=== PATIENT | female | born 1955 | race Caucasian/White ===

== ENCOUNTER 2018-04-10 18:49 | Emergency (ER) | payer OTHER ==
--- NOTE | 2018-04-10 19:34 | RAD ---
TWO VIEWS RIGHT FOREARM: 04/10/18 COMPARISON: None. HISTORY: Trauma, pain. FINDINGS: There are transverse fractures of the distal right radius and ulnar styloid with prominent dorsal and proximal displacement and dorsal angulation. Post reduction imaging advised. IMPRESSION: Fractures of the distal right radius and ulna as above. POS: [facility]
--- NOTE | 2018-04-10 20:10 | RAD ---
TWO VIEWS OF THE RIGHT WRIST: 04/10/18 COMPARISON: None. HISTORY: Deformity, fell out of bed. FINDINGS: There are markedly displaced transverse fractures involving the distal right radius and the ulnar sty loid. Lateral examination is limited secondary to rotation. There is prominent dorsal and proximal di splacement of the distal radial fracture. Post reduction imaging advised. IMPRESSION: Displaced distal right radial fracture with a displaced fracture of the ulnar styloid. Post reduction imaging advised. POS: [facility]
[2018-04-10] MEDS ORDERED: Lidocaine 1% (PF) 30 ML VIAL ONE (21:09)
[2018-04-10] MEDS ORDERED: Ondansetron ODT 8 MG TAB ONE (21:17)
--- NOTE | 2018-04-10 22:09 | RAD ---
TWO VIEWS OF THE RIGHT WRIST: 04/10/18 at 8:49 p.m. COMPARISON: 04/10/18 at 7:02 p.m. HISTORY: Fall, trauma, pain. FINDINGS: There is an obliquely oriented fracture at the base of the ulnar styloid. There is an obliquely orien shon fracture involving the distal right radius. The lateral examination demonstrate approximately 6-7 mm of residual distal displacement of the radial fracture fragment markedly improved. There is mild residual dorsal angulation of the distal radial fracture fragment. IMPRESSION: Fracture deformities of the distal right radius and ulna as detailed above. POS: [facility]
--- NOTE | 2018-04-11 03:31 | CON ---
DATE OF CONSULTATION: 04/10/2018 CHIEF COMPLAINT: Right wrist pain. HISTORY OF PRESENT ILLNESS: Ms. Bravo is a 62-year-old female, who fell tonight. She slipped and l ost her balance. She landed on her right outstretched arm. She had deformity of the wrist and pain. She was seen in the emergency department where x-rays were obtained. She was found to have a displ aced distal radius fracture. Orthopedics was consulted for this injury. She has been given pain med ication. No other injury. She is right hand dominant. No previous fracture. PAST MEDICAL HISTORY: She denies active medical problems. PAST SURGICAL HISTORY: Negative. ALLERGIES: No known drug allergies. FAMILY MEDICAL HISTORY: Noncontributory. REVIEW OF SYSTEMS: Positive for right wrist pain. IMAGES: X-rays demonstrate a completely displaced and angulated distal radius fracture with dorsal c omminution. PHYSICAL EXAMINATION: GENERAL: She is alert, sitting upright, in no apparent distress. HEENT: Normocephalic, atraumatic. RESPIRATORY: Breathing comfortably. ABDOMEN: Soft, nontender, nondistended. MUSCULOSKELETAL: The patient's right upper extremity has dorsal displacement at the distal radius wi th swelling. She has comminution. She is able to flex and extend the fingers. Two second capillary refill. Sensation intact distally. IMPRESSION: Comminuted and displaced distal radius fracture. PLAN: At this point, I will perform a hematoma block and reduce the patient's distal radius. We odilon l splint her arm. She will then be able to go home. I will arrange surgery as an outpatient for her for open reduction and internal fixation to restore anatomic alignment and healing of the distal rad ius. I have reviewed our plan and she is agreeable. Questions have been answered and risks have bee n reviewed. DESCRIPTION OF PROCEDURE: A 21-gauge needle was used to inject 10 mL of lidocaine into the distal ra dius fracture site. She was given morphine as well. At this point, we pulled traction and manipulat ed the fracture back into its anatomic position using a flexion maneuver. This was held in position while we placed a splint on the arm. Padding and a splint was placed as well as Eze wraps. She tole rated this well. No complication.
== END 2018-04-10 22:10 | disposition home or self-care (01) ==
LOC: ERS 18:49
DX: S52.501A Unspecified fracture of the lower end of right radius, initial encounter for closed fracture (principal); S52.611A Displaced fracture of right ulna styloid process, initial encounter for closed fracture; V89.9XXA Person injured in unspecified vehicle accident, initial encounter
CPT/HCPCS: 25605; J2001; J2270

== ENCOUNTER 2018-04-12 11:05 | Day surgery (SDC) | payer OTHER ==
[2018-04-11 11:57] VITALS: BMI 22.3
[2018-04-12] MEDS ORDERED: CEFAZOLIN/Water 2 GM/20 ML SYRINGE ONE (11:23)
[2018-04-12] MEDS ORDERED: Midazolam HCl 2 mg/2 ml Vial ONE (12:44)
[2018-04-12] MEDS ORDERED: Fentanyl 100 MCG/2 ML VIAL ONE (12:44)
[2018-04-12] MEDS ORDERED: Ropivacaine 0.5% HCl/PF (150 MG/30 ML VIAL) ONE (13:46)
[2018-04-12] MEDS ORDERED: Ketorolac Tromethamine 30 MG/ML VIAL ONE (14:24)
[2018-04-12] MEDS ORDERED: PHENYLEPHRINE-NS 100 MCG/ML 10 ML SYRINGE ONE (14:24)
[2018-04-12] MEDS ORDERED: PROPOFOL 200 MG/20 ML VIAL ONE (14:24)
[2018-04-12] MEDS ORDERED: Ondansetron HCl/PF 4 MG/2 ML Vial ONE (14:24)
[2018-04-12] MEDS ORDERED: Lidocaine 1% PF 5 ML VIAL ONE (14:24)
--- NOTE | 2018-04-12 17:11 | RAD ---
TWO VIEWS RIGHT WRIST: History: Right wrist trauma. Open reduction internal fixation. FINDINGS: AP and lateral views obtained. Intraoperative radiographic. Images demonstrate placement of plates and screws across the distal right radial fracture. No evidenc e of angulation seen. IMPRESSION: Open reduction internal fixation distal right radial fracture. POS: [facility]
--- NOTE | 2018-04-12 20:28 | OP ---
DATE OPERATION: 04/12/2018 OPERATION: Open reduction and internal fixation of right distal radius fracture. PREOPERATIVE DIAGNOSIS: Right displaced distal radius fracture. POSTOPERATIVE DIAGNOSIS: Right displaced distal radius fracture. COMPLICATIONS: None. ESTIMATED BLOOD LOSS: Minimal. SURGEON: Cain Sharpe M.D. AUTOMATION LEAD: Laila Rush PA-C. IMPLANTS: Synthes volar distal radius locking plate. INDICATIONS: Ms. Bravo is a 62-year-old female who fell. She fractured her distal radius. She was indicated for open reduction and internal fixation to restore anatomic alignment and promote healing . Risks have been reviewed in detail. She has elected to proceed with the operation. DESCRIPTION OF PROCEDURE: Ms. Bravo was identified in the preoperative holding area. Her correct e xtremity was marked. She was carried to the operating room. She was positioned supine. General ane sthesia was induced. A multidisciplinary timeout was performed. The right upper extremity was prepp ed and draped in sterile fashion. We began the procedure with a volar approach to the distal radius. We dissected down to the FCR tend on and the tendon sheath was opened. We then exposed the underlying pronator quadratus. This was el evated from the distal radius. Next, we exposed the fracture. The fractured surface was cleared. W e irrigated. We then anatomically reduced the fracture back into appropriate position and x-ray does confirming reduction. Finally, we placed a 4-hole Synthes plate along the volar cortex. We placed a proximal screw followed by multiple distal locking screws. We took x-ray images throughout this pr ocedure. There were no complications. After all screws were placed, we took final images. We thoro ughly irrigated with copious lavage. We then closed with 2-0 Vicryl suture followed by miya for t he skin, a sterile dressing and a splint was placed. The patient was taken to the recovery room at t his point in good condition.
== END 2018-04-12 17:03 | disposition home or self-care (01) ==
LOC: SDC 11:05
PROVIDERS: ATTEND Orthopaedic Surgery
PROC: 0PSH04Z Reposition Right Radius with Internal Fixation Device, Open Approach (ICD-10-PCS; principal; 2018-04-12)
DX: S52.501A Unspecified fracture of the lower end of right radius, initial encounter for closed fracture (principal); Z79.899 Other long term (current) drug therapy; W19.XXXA Unspecified fall, initial encounter
CPT/HCPCS: 76001; C1713; J1885; J2001; J2250; J2405; J2704; J2795; J3010